=== PATIENT | male | born 1980 | race Two or more races ===

== ENCOUNTER 2025-02-17 10:21 | Emergency (ER) | payer BC, MEDICAID, OTHER ==
[~2025-02-17] VITALS: Ht 170.2 cm; Wt 95.4 kg
--- NOTE | 2025-02-17 11:03 | DVH ---
XY R HAND 3 VIEW XRAY, INDICATION: CRUSH INJURY/ TECHNICAL DATA: Frontal, oblique and lateral views were obtained of the right hand. COMPARISON: None FINDINGS: Comminuted and displaced fracture at the tuft of the 4th distal phalanx. Joint spaces are maintained. Alignment is anatomic. 4th finger soft tissue edema. IMPRESSION: Comminuted and displaced fracture at the tuft of the 4th distal phalanx.
--- NOTE | 2025-02-17 11:06 | ED.PDOC ---
HPI Comments 44y M who presents to the ED for chief complaint of laceration. 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 Pt states the laceration occurred to due a crush injury and states he started to actively bleed and came to the ED. Pt in the ED, noted to be actively bleeding and ED staff applied pressure dressing. Pt otherwise denies fever, chills, shortness of breath or any associated symptoms. Pt in the ED, otherwise has stable vitals with BP 131/86, 02 sat 96% on room air, and temp of 98.2F. Pt denies any other symptoms at this time Chief Complaint: Laceration Time Seen by MD: 11:05 Reviewed Notes: Medications, Allergies Allergies: Coded Allergies: NO KNOWN ALLERGIES (Unverified , 02/17/25) Home Meds Active Scripts Diclofenac Potassium (Diclofenac Potassium) 50 Mg Tab, 1 TAB PO TIDP for 10 Days, #30 TAB Prov:JAXON ADHIKARI MD 02/17/25 Cefdinir (Cefdinir) 300 Mg Cap, 300 MG PO BID for 10 Days, #20 % Prov:JAXON ADHIKARI MD 02/17/25 Information Source: Patient, Friend Mode of Arrival: Ambulatory Severity: Moderate Severity of Laceration: Deformity, Controlled Bleeding Complexity: Intermediate Timing: Hours Laceration Location: Digit #4 Mechanism: Metal Laceration Length (cm): 3 Skin Type: Avulsion, Jagged Depth of Injury: Skin, Mucosa Tender: Moderate Discharge: None Associated Signs and Symptoms: None Past Medical History PAST MEDICAL HISTORY: Denies Surgical History: Denies all surgeries Family History Family History: Reviewed,noncontributory to illness Social History Smoker: Non-Smoker Alcohol: Denies ETOH Use Drugs: Denies Drug Use Lives In: Home All Other Systems: Reviewed and Negative (see HPI) Physical Exam General Appearance: Moderate Distress HEENT: Normal ENT Inspection, PERRL/EOMI Neck: Full Range of Motion, Non-Tender, Normal, Normal Inspection Respiratory: Chest Non-Tender, Lungs Clear, No Accessory Muscle Use, No Respiratory Distress, Normal Breath Sounds Cardiovascular: No Edema, No JVD, No Murmur, No Gallop, Normal Peripheral Pulses, Regular Rate/Rhythm Breast Exam: Deferred Gastrointestinal: No Organomegaly, Non Tender, No Pulsatile Mass, Normal Bowel Sounds, Soft Genitalia: Deferred Pelvic: Deferred Rectal: Deferred Extremities: No calf tenderness, Normal capillary refill, Normal inspection, Normal range of motion, Non-tender, No pedal edema Musculoskeletal : Location: Right Extremity Location: Finger 4 Apperance: Deformity, Limited ROM, Tenderness: Moderate, Other (Crush injury of the distal phalanx of the 4th finger right hand nail avulsed distal tissue volar avulsion minimal bleeding at this time) Neurologic: Alert, store hand II-XII nml as Tested, No Motor Deficits, Normal Affect, Normal Mood, No Sensory Deficits Cerebellar Function: Normal Reflexes: Normal Skin: Dry, Normal Color, Warm Peripheral Pulses: 1+ carotid (R), 1+ carotid (L) Lymphatic: No Adenopathy Was a procedure done? Was a procedure done?: Yes Sedation Sedation?: No Laceration Repair : Location Distal phalanx right 4th finger avulsion with the nail avulsed Length 3 cm total laceration Anesthetic: Lidocaine, Digital nerve block Laceration Repair Prep: Shur-Clens, by Irrigation, Manual Scrub Laceration Repair Wound Comple: debridement, wound margins Laceration Repair: Number of sutures, Layers Closed (1), Skin, Nylon (40), Simple, Bacitracin, Non-adherent gauze, Gauze Informed consent obtained: No Risks, benefits, and alternati: No Notes Patient accepted procedure well Differential diagnosis Generic Laceration: Fracture, Neurovascular Injury, Abrasion/Contusion, Laceration, Avulsion, Amputation Differential Diagnosis: N/A X-Ray, Labs, Meds, VS Vital Signs Date Time Temp Pulse Resp B/P (MAP) Pulse Ox O2 Delivery O2 Flow Rate FiO2 02/17/25 12:34 85 18 93 Room Air 02/17/25 12:34 98.0 85 18 139/85 (103) 93 98.0 02/17/25 10:23 98.2 95 18 131/86 96 98.2 Current Medications Medications (Trade) Dose Ordered Sig/[place] Route Start Time Stop Time Status Last Admin Bacitracin 1 applic ONCE ONCE TOP 02/17/25 11:00 02/17/25 11:01 DC 02/17/25 11:08 [facility] [id number] [place] [id number] Ph: [phone] DIAGNOSTIC IMAGING Diagnostic Imaging Report : [id number] Signed PATIENT: JAVIER HOLLINS ACCT: [id number] UNIT: [id number] : 1980 LOC: ER ROOM / BED: / AGE / SEX: 44 / M ADM STATUS: REG ER SERVICE 1029 ORDERING PHYSICIAN: ELIDA WYNN PROCEDURE(s): RHAN - R HAND 3 VIEW XRAY REASON: CRUSH INJURY/ ORDER NUMBER(s): [id number], ACCESSION NUMBER(s): [id number] XY R HAND 3 VIEW XRAY, INDICATION: CRUSH INJURY/ TECHNICAL DATA: Frontal, oblique and lateral views were obtained of the right hand. COMPARISON: None FINDINGS: Comminuted and displaced fracture at the tuft of the 4th distal phalanx. Joint spaces are maintained. Alignment is anatomic. 4th finger soft tissue edema. IMPRESSION: Comminuted and displaced fracture at the tuft of the 4th distal phalanx. ATED BY: ISAIAS NASCIMENTO MD DICTATED DATE/TIME: 02/17/25 110 SIGNED BY: ISAIAS NASCIMENTO MD SIGNED DATE/TIME: 02/17/25 110 CC: X-Ray, Labs, Meds, VS Comment Patient came in with a crushed injury to his 4th finger which was repaired Tube gauze and splint applied Patient will be discharged home to follow up with the [facility] Time of 1ST Reevaluation: 11:05 Reevaluation 1ST: Unchanged Time of 2ND Reevaluation: 11:50 Reevaluation 2ND: Improved Consultation: PCP Patient Education/Counseling: Diagnosis, Treatment Family Education/Counseling: Diagnosis, Treatment Departure 1 Departure Time of Disposition: 11:47 Impression: Primary Impression: Crushing injury of finger of right hand Disposition: 01 HOME / SELF CARE / HOMELESS Condition: Fair Additional Instructions: Keep laceration clean and dry and follow up with the industrial Clinic Suture will be removed in 10 days e-Prescriptions Diclofenac Potassium (Diclofenac Potassium) 50 Mg Tab 1 TAB PO TIDP for 10 Days, #30 TAB Prov: JAXON ADHIKARI MD 02/17/25 Cefdinir (Cefdinir) 300 Mg Cap 300 MG PO BID for 10 Days, #20 % Prov: JAXON ADHIKARI MD 02/17/25 Discharged With: Self Critical Care Note Critical Care Time?: No Stability Stability form required: No Heart Score Heart Score: Heart Score Response (Comments) Value History N/A 0 EKG N/A 0 Age <45 0 Risk Factors No known risk factors 0 Troponin N/A 0 Total 0 I personally scribed for JAXON ADHIKARI MD ([email or web address]) on 02/17/25 at 11:06. Electronically submitted by Ingrid Dumont ([facility]). I personally scribed for JAXON ADHIKARI MD ([email or web address]) on 02/17/25 at 11:08. Electronically submitted by Ingrid Dumont ([facility]). JAXON ADHIKARI MD Feb 17, 2025 11:06
[2025-02-17] MEDS: BACITRACIN TOP OINT 1 UD PKG TOP ONE (11:08)
[2025-02-17] MEDS: LIDOCAINE 2%HCL (LOCAL ANESTH.) INJ 20ML MDV ID ONE (11:08)
[2025-02-17] MEDS ORDERED: CEFD300C2 PO (11:57)
[2025-02-17] MEDS ORDERED: DICL50TA2 PO (11:57)
[2025-02-17 12:34] VITALS: BP 139/85; PULSE 85; RESP 18; TEMP 98; O2SAT 93
== END 2025-02-17 12:37 | disposition home or self-care (01) ==
LOC: ER 10:21
DX: S67.10XA Crushing injury of unspecified finger(s), initial encounter (principal); W23.0XXA Caught, crushed, jammed, or pinched between moving objects, initial encounter; Y93.89 Activity, other specified; Y92.89 Other specified places as the place of occurrence of the external cause; Y99.8 Other external cause status
CPT/HCPCS: 12002; 73130